=== PATIENT | male | born 1960 | race Caucasian/White ===

== ENCOUNTER → 2018-04-07 | Outpatient (CLI) | payer BC ==
[~2018-04-07] VITALS: Ht 193 cm; Wt 77.1 kg
[~2018-04-07] MED LIST: ASPIRIN81 M2 PO; LIPITOR80 MG PO; LISINOPRIL2.5 MG PO; PLAVIX 75 MG TA75 M1 PO
[2018-04-07 11:38] LABS: HEMATOCRIT 38.9 % (42.0-52.0); HEMOGLOBIN 12.8 gm/dL (14.0-18.0); MCH 33.5 pg (26.0-34.0); MCV 101.6 fL (80.0-100.0); MPV 8.8 fl. (7.2-11.1); RBC 3.83 mil/uL (4.50-6.00); WBC 4.7 thou/uL (4.0-11.0)
[2018-04-07 11:41] LABS: ANION GAP 5 mmol/L (7-16); BUN 9 mg/dL (7-18); CALCIUM 8.4 mg/dL (8.5-10.1); CHLORIDE 105 mmol/L (98-107); CO2 29 mmol/L (21-32); CREATININE 0.8 mg/dL (0.6-1.3); GLUCOSE 79 mg/dL (70-99); SODIUM 139 mmol/L (136-145)
[2018-04-07 11:45] LABS: ALBUMIN 3.7 g/dL (3.4-5.0); ALKALINE PHOSPHATASE 78 U/L (46-116); CHOLESTEROL 109 mg/dL (<200); HDL CHOLESTEROL 51 mg/dL (>40); LDL CHOLESTEROL 51 mg/dL (<100); SGOT 14 U/L (15-37); SGPT 17 U/L (30-65); TC:HDL 2.1 Ratio (Not establshd); TOTAL BILIRUBIN 0.7 mg/dL (<0.1-1.0); TOTAL PROTEIN 6.8 g/dL (6.4-8.2); TRIGLYCERIDE 36 mg/dL (<150); VLDL 7 mg/dL (<40)
[2018-04-07 11:46] LABS: APTT 28.5 Seconds (25.0-31.3); INR 1.1; PROTIME 11.1 Seconds (9.20-11.50); SERUM ASSESSMENT Clear
[2018-04-07 12:02] VITALS: BP 111/66
[2018-04-07 15:45] VITALS: BP 117/60
[2018-04-07 16:00] VITALS: BP 96/56
[2018-04-07 16:15] VITALS: BP 96/56
--- NOTE | 2018-04-08 10:51 | EKG ---
[place] [address] ELECTROCARDIOGRAM REPORT Name: SHELLGAMALIEL HECTOR Room: [facility]#: [id number] Admission: 04/07/18 Attend Phys: Severino Colbert MD Discharge: Date of : 56 Report #: [id number] THIS REPORT FOR: //name// [facility] Test Date: 2018-04-07 Test Time: 11:53:36 Pat Name: GAMALIEL GOFF Department: Room: Gender: [employer]er: : 1960 Requested By: Severino Colbert Order Number: [id number] Reading MD: Rodríguez Pulido Measurements Intervals [place] Rate: 51 P: 79 TX: 144 QRS: 45 QRSD: 90 T: 20 QT: 434 QTc: 400 Interpretive Statements Sinus bradycardia Borderline low voltage, extremity leads No previous ECG available for comparison Electronically Signed On 04-08-2018 10:50:49 CDT by Rodríguez Pulido [email or web address] <ELECTRONICALLY SIGNED> By: Rodríguez Pulido MD, [facility] 04/08/18 1050 1153 1153 Rodríguez Pulido MD, FACC /EPI
--- NOTE | 2018-04-08 16:37 | CARD ---
[address] [address] CARDIAC CATH REPORT Name: GAMALIEL GOFF [id number] Admission: 04/07/18 Attend Phys: Severino Colbert MD Discharge: Date of : 56 Report #: [id number] THIS REPORT FOR: //name// ADDENDUM APPROVED REPORT Study performed: 04/07/2018 13:51:00 Patient Details Patient Status: Out-Patient Room #: The patient is a 57 year-old male Event Personnel Severino Colbert Manager Tax, Shara Parr RN Multifocal Lens Inspector, Sophie Sandoval Monitor, Ernie Romeo Scrub Procedures Performed Art Access - R radial artery , [facility] VGram [id number] LHCLV , Left Ventriculogram Procedure Narrative The patient was brought electively to the Cardiac Catheterization Laboratory and was prepped and draped in a sterile manner. The right wrist was infiltrated with 2% Lidocaine subcutaneous anesthesia. A Slender Glidesheath sheath was inserted into the right radial artery. Coronary angiography was performed using coronary diagnostic catheters. The right coronary system was accessed and visualized with a AR1 Mod 6fr catheter. The left coronary system was accessed and visualized with a [place] 4.0 6fr catheter. The left ventricle was accessed and visualized with a PC: Angled Pig 5fr catheter. Left ventricular/Aortic Valve gradient assessed via catheter pullback. Left ventriculogram was performed in BALLESTEROS projection. Intraoperative Conscious Sedation Sedation start time: 14:45 Case end Time: 15:15 Fentanyl 25 mcg Versed 1 mg Fluoro Time: 11.2 minutes Dose: DAP 15363 cGycm2 612.53 mGy Contrast Type and Amount: Omnipaque 140 ml [place] Artery Percent Stenosis Left Main: 0 % Prox LAD: % Mid/Distal LAD: % Circumflex: % RCA: % Ramus: % [place] [address] CARDIAC CATH REPORT Name: GAMALIEL GOFF Room: [facility]#: [id number] Admission: 04/07/18 Attend Phys: Severino Colbert MD Discharge: Date of : 56 Report #: [id number] Diagnostic Cath Left Main normal LAD large vessel with long stented proximal portion, 30% ISR,mid distal lad tortuous normal Diagonal 1 large and normal Circumflex normal OM1 large normal OM2 small normal Right Coronary mid body occluded, collaterals from left noted Left Ventriculography The left ventricle is normal in size with normal contractility. The left ventricular ejection fraction is estimated to be >55%. Left ventricular wall motion abnormalities are present. There is no mitral insufficiency. basal inferior moderate hypokinesis, apical mild hypokinesis Hemodynamics The aortic pressure is 91/49 mmHg with a mean of 65 mmHg. The left ventricular pressure is 92/0 mmHg with a mean of mmHg. The left ventricular end diastolic pressure is 5 mmHg. There was no gradient across the aortic valve upon pullback. Conclusion 1. mild in stent stenosis to stented proximal LAD 2. chronic, known occlusion of RCA with collaterals 3.wall motion abnormalities of inferior and apex 4. normal overall function of LV Recommendations Smoking Cessation Aggressive Medical Therapy Diagnostic Cath Approved by: Severino Colbert MD Date/Time: <ELECTRONICALLY SIGNED> By: Severino Colbert MD, FACC 04/08/18 1637 [id number] Colbert MD, FACC /INF
== END | disposition home or self-care (01) ==
LOC: M.CL 10:47
PROVIDERS: Internal Medicine Cardiovascular Disease
DX: I25.10 Atherosclerotic heart disease of native coronary artery without angina pectoris (principal); I10 Essential (primary) hypertension; I73.9 Peripheral vascular disease, unspecified; F17.210 Nicotine dependence, cigarettes, uncomplicated; Z98.890 Other specified postprocedural states; Z95.5 Presence of coronary angioplasty implant and graft; Z79.899 Other long term (current) drug therapy; Z79.01 Long term (current) use of anticoagulants; Z79.82 Long term (current) use of aspirin